=== PATIENT | female | born 1935 | race Caucasian/White ===

== ENCOUNTER 2018-05-04 19:35 | Inpatient (IN) | payer OTHER ==
[~2018-05-04] VITALS: Ht 157.5 cm; Wt 71.7 kg
[2018-05-04 19:46] VITALS: BP 131/71
[2018-05-04] MEDS ORDERED: AMBIEN 5 MG TABL5 M1 PO (20:04)
[2018-05-04] MEDS ORDERED: PROTONIX40 M1 PO (20:05)
[2018-05-04] MEDS ORDERED: AMLODIPINE BESYL5 M1 PO (20:05)
[2018-05-04] MEDS ORDERED: GABAPENTIN 100100 MG PO (20:06)
[2018-05-04] MEDS ORDERED: URSO TAB 250 M250 MG PO (20:06)
[2018-05-04] MEDS ORDERED: WELCHOL 625 MG625 MG PO (20:07)
[2018-05-04] MEDS ORDERED: XANAX 0.25 MG0.25 MG PO (20:08)
[2018-05-04 20:14] LABS: HEMATOCRIT 35.7 % (37.0-47.0); HEMOGLOBIN 11.3 gm/dL (12.0-15.0); MCH 26.6 pg (26.0-34.0); MCHC 31.7 g/dL (28.0-37.0); MCV 83.9 fL (80.0-100.0); MPV 8.6 fl. (7.2-11.1); NUCLEATED RBCS 0 /100WBC; PLATELET COUNT* 361 thou/uL (150-400); RBC 4.26 mil/uL (4.20-5.00); RDW-CV 15.2 % (10.5-14.5); WBC 21.3 thou/uL (4.0-11.0)
[2018-05-04 20:22] LABS: ANION GAP 11 mmol/L (7-16); BUN 34 mg/dL (7-18); CALCIUM 9.9 mg/dL (8.5-10.1); CHLORIDE 97 mmol/L (98-107); CO2 26 mmol/L (21-32); CREATININE 1.6 mg/dL (0.6-1.3); GLUCOSE 213 mg/dL (70-99); POTASSIUM 3.9 mmol/L (3.5-5.1); SODIUM 134 mmol/L (136-145)
[2018-05-04 20:31] LABS: APTT 25.4 Seconds (25.0-31.3)
[2018-05-04 20:33] LABS: ALBUMIN 3.4 g/dL (3.4-5.0); ALKALINE PHOSPHATASE 108 U/L (46-116); LIPASE 296 U/L (73-393); NT-PRO BRAIN NAT PEPTIDE 757 pg/mL (<300); SGOT 27 U/L (15-37); SGPT 37 U/L (30-65); TOTAL BILIRUBIN 0.3 mg/dL (<0.1-1.0); TOTAL PROTEIN 7.4 g/dL (6.4-8.2); TROPONIN-I LEVEL <0.06 ng/mL (<0.06)
[2018-05-04 20:37] LABS: URINE BILIRUBIN NEGATIVE (Negative); URINE BLOOD NEGATIVE (Negative); URINE CLARITY CLEAR; URINE COLOR YELLOW; URINE GLUCOSE-RANDOM NEGATIVE (Negative); URINE KETONES NEGATIVE (Negative); URINE LEUKOCYTES-REFLEX NEGATIVE (Negative); URINE NITRITE-REFLEX NEGATIVE (Negative); URINE PROTEIN NEGATIVE (Negative); URINE SPECIFIC GRAVITY 1.015 (1.005-1.030); URINE UROBILINOGEN 0.2 E.U./dl (0.2-1.0)
[2018-05-04 20:46] LABS: ABSOLUTE BASOPHILS 0.2 thou/uL (0.0-0.2); ABSOLUTE LYMPHOCYTES 1.5 thou/uL (0.8-5.3); ABSOLUTE MONOCYTES 0.4 thou/uL (0.0-1.2); ABSOLUTE NEUTROPHILS 19.2 thou/uL (1.6-8.1); ANISOCYTOSIS 1+; METAMYELOCYTES 1 %; PLATELET ESTIMATE ADEQUATE
[2018-05-04 21:25] LABS: BE -1.9 mmol/L (-2 to +3); HCO3 22.9 mmol/L (22.0-26.0); PCO2 39.2 mmHg (35.0-45.0); PO2 91.7 mmHg (75.0-100.0); pH 7.384 (7.340-7.450)
[2018-05-04 23:10] VITALS: BP 129/51
[2018-05-04 23:35] VITALS: BP 130/64
[2018-05-04] MEDS ORDERED: XANAX 0.5 MG0.5 MG PO (23:56)
[2018-05-05 03:54] VITALS: BP 144/48
[2018-05-05 08:00] VITALS: BP 92/71
[2018-05-05] MEDS ORDERED: COZAAR 25 MG TA25 M1 PO (09:30)
[2018-05-05] MEDS ORDERED: ATENOLOL 100MG100 MG PO (09:31)
[2018-05-05] MEDS ORDERED: CHLORTHALIDONE25 MG PO (09:31)
[2018-05-05 12:00] VITALS: BP 158/61
--- NOTE | 2018-05-05 12:13 | EKG ---
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 : 1935 Requested By: Marti Givens Order Number: [id number] MD: Rene Victor Measurements Intervals [place] Rate: 92 P: 74 MD: 156 QRS: 27 QRSD: 94 T: 86 QT: 337 QTc: 417 Interpretive Statements Sinus rhythm Anterior infarct, old Minimal ST depression, lateral leads Compared to ECG 03/04/2007 21:08:06 Myocardial infarct finding now present ST (T wave) deviation now present Electronically Signed On 05-05-2018 12:13:27 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
[2018-05-05 15:52] LABS: ABSOLUTE LYMPHOCYTES 1.9 thou/uL (0.8-5.3); ABSOLUTE MONOCYTES 1.5 thou/uL (0.0-1.2); ABSOLUTE NEUTROPHILS 13.3 thou/uL (1.6-8.1); BASOPHILS 0.1 %; HEMOGLOBIN 11.2 gm/dL (12.0-15.0); LYMPHOCYTES 11.2 %; MCH 26.7 pg (26.0-34.0); MCHC 31.9 g/dL (28.0-37.0); MCV 83.9 fL (80.0-100.0); MONOCYTES 8.9 %; MPV 8.5 fl. (7.2-11.1); NUCLEATED RBCS 0 /100WBC; PLATELET COUNT* 345 thou/uL (150-400); POLYS 79.8 %; RBC 4.17 mil/uL (4.20-5.00); RDW-CV 15.2 % (10.5-14.5); WBC 16.7 thou/uL (4.0-11.0)
[2018-05-05 16:00] VITALS: BP 137/49
[2018-05-05 16:13] LABS: ANION GAP 5 mmol/L (7-16); BUN 30 mg/dL (7-18); CALCIUM 9.3 mg/dL (8.5-10.1); CHLORIDE 103 mmol/L (98-107); CO2 29 mmol/L (21-32); CREATININE 1.3 mg/dL (0.6-1.3); GLUCOSE 100 mg/dL (70-99); POTASSIUM 4.2 mmol/L (3.5-5.1); SODIUM 137 mmol/L (136-145); TROPONIN-I LEVEL <0.06 ng/mL (<0.06)
[2018-05-05 17:04] VITALS: BP 137/49
--- NOTE | 2018-05-07 14:51 | CON ---
[address] [address] CONSULTATION Name: JARVIS HAWKINS Room: [address] IN M.R.#: [id number] Admission: 05/04/18 Attend Phys: Cheyenne Lopez Discharge: 05/05/18 Date of : 31 Report #: [id number] THIS REPORT FOR: //name// CC: Hank Sadler REQUESTING PHYSICIAN: Jhon Sadler DO PRIMARY CARE PHYSICIAN: Hank Guerra DO CHIEF COMPLAINT: Shortness of breath, chest discomfort. HISTORY OF PRESENT ILLNESS: The patient is an 82-year-old female who presented to the Emergency Department with a relatively acute onset of shortness of breath, elevated blood pressure and very mild, 1/10 chest discomfort, it was centrally located, but it radiated to her back. She took 3 nitro and aspirin and by the time she got to the Emergency Room most of her symptoms had resolved. Her presenting ECG was unremarkable and she was admitted for further observation and overnight her cardiac telemetry and troponins have all been normal and she is symptom-free this morning. She had recently had an epidural injection for degenerative joint disease and had noticed some weight and blood pressure had been trending upwards. She is very sensitive to increases in her current medical therapy because of side effects, though. She had been having some very mild increase in her lower extremities swelling. PAST MEDICAL HISTORY: Significant for coronary artery disease, she has had apparently 3 separate percutaneous coronary interventions. She is followed by Dr. Macias most recent one was in 2010, but she follows with him regularly. She has hypertension. She has mild chronic edema. HOME MEDICATIONS: Include amlodipine 5 mg daily; if she goes up to a higher dose she will get increasing lower extremities and pedal edema. She is on Protonix, zolpidem, gabapentin 100 mg p.o. t.i.d., and she takes chlorthalidone one tablet 3 days per week. ALLERGIES: SHE HAS ALLERGIES TO KEFLEX, CEPHALOSPORINS, LEVOFLOXACIN, PENICILLIN, QUINOLONES AND SULFAMETHOXAZOLE. SOCIAL HISTORY: She is a nonsmoker. She is recently . Her approximately a year ago. REVIEW OF SYSTEMS: GENERAL: [place] [address] CONSULTATION Name: JARVIS HAWKINS Room: [address]#: [id number] Admission: 05/04/18 Attend Phys: Cheyenne Lopez Discharge: 05/05/18 Date of : 31 Report #: [id number] PULMONARY: Positive shortness of breath. No orthopnea, no PND. CARDIOVASCULAR: Chest pain as noted above. No palpitations. NEUROLOGIC: No headaches, blurry vision, or slurred speech. No seizures. HEMATOLOGIC: No anemia or bleeding. RENAL: No history of kidney failure. SKIN: No rashes. She does have easy bruising. MUSCULOSKELETAL: No recent falls. Positive arthritis. PHYSICAL EXAMINATION: VITAL SIGNS: Blood pressure this morning is 92/71, pulse 75. Overnight, her blood pressure was 144/50. She is in a sinus rhythm, on telemetry GENERAL: A pleasant elderly female. She is alert, oriented, no apparent distress. HEENT: Eyes: EOMs intact. No facial asymmetry. NECK: Supple. No jugular venous distention. Upstrokes are normal. CARDIOVASCULAR: Regular. I could hear a faint apical murmur, no S3. LUNGS: Clear to auscultation bilaterally. ABDOMEN: Soft, nontender. EXTREMITIES: There is trace pretibial edema and pedal edema. SKIN: She has some numerous ecchymoses in the lower extremities. LABORATORY DATA: Hemoglobin is 11.3. White blood cell count was 21.3, but it is noted she was on steroids. Platelet count is 361,000. Sodium was 134, potassium was 3.9, BUN was 34, creatinine was 1.9, chloride was 97. AST, ALT 27 and 37. Troponin I was 0.06 x 2 sets. INR was 1.0. V/Q scan was low probability. Chest x-ray showed chronic lung changes. No pulmonary vascular abnormality or infiltrates. IMPRESSION AND PLAN: 1. Chest discomfort. This could be related to mild congestive heart failure. It is noted that her weight has been increasing. She recently had a steroid injection and elevated blood pressures as at home. Her BNP on presentation was 757, although her chest x-ray was fairly unremarkable. I instructed her to start taking an extra chlorthalidone per week, she currently is only taking approximately 3 per week. 2. Hypertension. This has stabilized inpatient. I would not make any further adjustments to her medications at this time. 3. Coronary artery disease. She follows regularly with Dr. Macias and I have instructed her to make an appointment with him as soon as she is discharged later today. She has ruled out for an acute myocardial infarction and her symptoms seem more to be possibly related to volume overload. [address] [address] CONSULTATION Name: JARVIS HAWKINS Room: [address] IN Prem#: [id number] Admission: 05/04/18 Attend Phys: Cheyenne Lopez Discharge: 05/05/18 Date of : 31 Report #: [id number] 4. Acute diastolic congestive heart failure as noted above. I would treat this conservatively with oral diuretics. <ELECTRONICALLY SIGNED> By: Rene Victor MD, FACC 05/07/18 1451 1033 1850Rene Victor MD, FACC /nt
[2018-05-08 02:12] LABS: GLYCOHEMOGLOBIN (HGB A1C) 5.8 % (4.8-5.6)
== END 2018-05-05 18:00 | disposition still patient (30) | DRG 682 ==
LOC: M.ERS 19:35 → M.TBA-ER 21:29 → M.2W 21:29
PROVIDERS: Family Medicine; Personal Emergency Response Attendant; ADMIT Internal Medicine
DX: N17.0 Acute kidney failure with tubular necrosis (principal); I50.31 Acute diastolic (congestive) heart failure; R65.11 Systemic inflammatory response syndrome (SIRS) of non-infectious origin with acute organ dysfunction; I13.0 Hypertensive heart and chronic kidney disease with heart failure and stage 1 through stage 4 chronic kidney disease, or unspecified chronic kidney disease; I25.118 Atherosclerotic heart disease of native coronary artery with other forms of angina pectoris; F32.9 Major depressive disorder, single episode, unspecified; F41.9 Anxiety disorder, unspecified; M19.90 Unspecified osteoarthritis, unspecified site; N18.3 Chronic kidney disease, stage 3 (moderate); D72.829 Elevated white blood cell count, unspecified; T38.0X5A Adverse effect of glucocorticoids and synthetic analogues, initial encounter; K21.9 Gastro-esophageal reflux disease without esophagitis; J44.9 Chronic obstructive pulmonary disease, unspecified; F43.20 Adjustment disorder, unspecified; I25.2 Old myocardial infarction; Z95.5 Presence of coronary angioplasty implant and graft; Z79.82 Long term (current) use of aspirin; Z79.899 Other long term (current) drug therapy; Y92.89 Other specified places as the place of occurrence of the external cause; Z88.1 Allergy status to other antibiotic agents; Z88.0 Allergy status to penicillin; Z88.2 Allergy status to sulfonamides; Z88.8 Allergy status to other drugs, medicaments and biological substances; Z82.49 Family history of ischemic heart disease and other diseases of the circulatory system

== ENCOUNTER 2020-12-04 18:42 | Inpatient (IN) | payer OTHER ==
[~2020-12-04] VITALS: Ht 160 cm; Wt 67.3 kg
[~2020-12-04 18:42] MED LIST: AMBIEN 5 MG TABL5 M1 PO; AMLODIPINE BESY10 MG PO; AMLODIPINE BESYL5 M1 PO; ATENOLOL 100MG100 MG PO; BENADRYL25 MG PO; BYSTOLIC10 MG PO; CHLORTHALIDONE25 MG PO; COZAAR 25 MG TA25 M1 PO; GABAPENTIN 100100 MG PO; LOSARTAN POTAS100 MG PO; NITROGLYCERIN0.4 MG SUBLING; PROTONIX40 M1 PO; PROTONIX40 M4 PO; ST. JOSEPH ASPI81 MG PO; URSO TAB 250 M250 MG PO; URSODIOL300 MG PO; WELCHOL 625 MG625 M1 PO; WELCHOL 625 MG625 MG PO; XANAX 0.25 MG0.25 MG PO; XANAX 0.5 MG0.5 MG PO; ZOLPIDEM TARTRA10 MG PO
[2020-12-04 18:45] VITALS: BP 202/81
[2020-12-04 19:46] LABS: ABSOLUTE BASOPHILS 0.1 thou/uL (0.0-0.2); ABSOLUTE EOSINOPHILS 0.3 thou/uL (0.0-0.7); ABSOLUTE LYMPHOCYTES 2.5 thou/uL (0.8-5.3); ABSOLUTE MONOCYTES 0.7 thou/uL (0.0-1.2); ABSOLUTE NEUTROPHILS 3.9 thou/uL (1.6-8.1); BASOPHILS 0.8 %; EOSINOPHILS 4.3 %; HEMATOCRIT 37.7 % (37.0-47.0); HEMOGLOBIN 12.7 gm/dL (12.0-15.0); LYMPHOCYTES 33.2 %; MCHC 33.7 g/dL (28.0-37.0); MCV 89.2 fL (80.0-100.0); MONOCYTES 9.4 %; MPV 7.9 fl. (7.2-11.1); NUCLEATED RBCS 0 /100WBC; PLATELET COUNT* 305 thou/uL (150-400); POLYS 52.3 %; RBC 4.22 mil/uL (4.20-5.00); RDW-CV 14.9 % (10.5-14.5); WBC 7.5 thou/uL (4.0-11.0)
[2020-12-04 19:58] LABS: CALCIUM 9.5 mg/dL (8.5-10.1); CREATININE 1.1 mg/dL (0.6-1.3); POTASSIUM 4.8 mmol/L (3.5-5.1)
[2020-12-04 20:09] LABS: ALBUMIN 3.4 g/dL (3.4-5.0); TOTAL BILIRUBIN 0.3 mg/dL (<0.1-1.0); TOTAL PROTEIN 6.8 g/dL (6.4-8.2)
[2020-12-04 20:28] LABS: BE 0.6 mmol/L (-2 to +3); PCO2 45.2 mmHg (35.0-45.0); pH 7.379 (7.340-7.450)
[2020-12-04 20:30] LABS: PO2 50.9 mmHg (75.0-100.0)
[2020-12-04] MEDS ORDERED: MICARDIS40 MG PO (22:41)
[2020-12-04] MEDS ORDERED: ATENOLOL 25 MG25 M1 PO (22:41)
[2020-12-04] MEDS ORDERED: FISH OIL 1,0001 EAC9 PO (22:45)
[2020-12-05] VITALS (7 sets, daily range): BP systolic 140–178; BP diastolic 58–113
--- NOTE | 2020-12-05 11:01 | EKG ---
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
[2020-12-06] VITALS: BP 126/53
[2020-12-06 04:00] VITALS: BP 120/46
[2020-12-06 04:59] LABS: ABSOLUTE BASOPHILS 0.1 thou/uL (0.0-0.2); ABSOLUTE EOSINOPHILS 0.3 thou/uL (0.0-0.7); ABSOLUTE LYMPHOCYTES 1.9 thou/uL (0.8-5.3); ABSOLUTE MONOCYTES 0.7 thou/uL (0.0-1.2); ABSOLUTE NEUTROPHILS 3.2 thou/uL (1.6-8.1); EOSINOPHILS 4.4 %; HEMATOCRIT 37.4 % (37.0-47.0); HEMOGLOBIN 12.6 gm/dL (12.0-15.0); LYMPHOCYTES 31.2 %; MCH 29.6 pg (26.0-34.0); MCHC 33.6 g/dL (28.0-37.0); MCV 88.2 fL (80.0-100.0); MPV 7.1 fl. (7.2-11.1); NUCLEATED RBCS 0 /100WBC; PLATELET COUNT* 284 thou/uL (150-400); POLYS 52.4 %; RBC 4.24 mil/uL (4.20-5.00); RDW-CV 14.5 % (10.5-14.5); WBC 6.1 thou/uL (4.0-11.0)
[2020-12-06 05:11] LABS: CALCIUM 9.4 mg/dL (8.5-10.1); CREATININE 1.3 mg/dL (0.6-1.3); POTASSIUM 4.4 mmol/L (3.5-5.1)
[2020-12-06 07:45] VITALS: BP 148/54
[2020-12-06 12:00] VITALS: BP 134/45
[2020-12-06 16:00] VITALS: BP 142/63
[2020-12-06 20:00] VITALS: BP 133/57
[2020-12-07] VITALS: BP 119/36
[2020-12-07 03:45] VITALS: BP 115/46
[2020-12-07 09:15] LABS: ABSOLUTE BASOPHILS 0.1 thou/uL (0.0-0.2); ABSOLUTE EOSINOPHILS 0.4 thou/uL (0.0-0.7); ABSOLUTE LYMPHOCYTES 1.7 thou/uL (0.8-5.3); ABSOLUTE MONOCYTES 0.9 thou/uL (0.0-1.2); ABSOLUTE NEUTROPHILS 3.8 thou/uL (1.6-8.1); BASOPHILS 1.2 %; EOSINOPHILS 5.7 %; HEMATOCRIT 36.1 % (37.0-47.0); HEMOGLOBIN 12.2 gm/dL (12.0-15.0); LYMPHOCYTES 25.1 %; MCH 29.5 pg (26.0-34.0); MCHC 33.7 g/dL (28.0-37.0); MCV 87.4 fL (80.0-100.0); MONOCYTES 12.5 %; MPV 7.8 fl. (7.2-11.1); NUCLEATED RBCS 0 /100WBC; PLATELET COUNT* 312 thou/uL (150-400); POLYS 55.5 %; RBC 4.13 mil/uL (4.20-5.00); RDW-CV 14.6 % (10.5-14.5); WBC 6.9 thou/uL (4.0-11.0)
[2020-12-07 09:40] LABS: ALBUMIN 2.7 g/dL (3.4-5.0); CALCIUM 9.2 mg/dL (8.5-10.1); CREATININE 1.4 mg/dL (0.6-1.3); POTASSIUM 4.4 mmol/L (3.5-5.1); TOTAL BILIRUBIN 0.4 mg/dL (<0.1-1.0)
[2020-12-07 12:00] VITALS: BP 120/46
[2020-12-07 13:22] VITALS: BP 124/43
[2020-12-07 15:37] VITALS: BP 124/43
[2020-12-07 16:00] VITALS: BP 140/46
--- NOTE | 2020-12-08 16:07 | 2DMMODE ---
[place] [address] 2 D/M-MODE ECHOCARDIOGRAM Name: SHRUTHIJARVIS J Room: [address] IN .Edel.#: [id number] Admission: 12/04/20 Attend Phys: Jhon Sadler Discharge: 12/07/20 Date of : 31 Date of Service: 12/07/20 1613 Report #: [id number] THIS REPORT FOR: cc: Hank Guerra Mohammad K. DO Blick, David R. MD [facility] ~ APPROVED REPORT Study performed: 12/07/2020 13:45:32 EXAM: Comprehensive 2D, Doppler, and color-flow Echocardiogram Patient Location: In-Patient Room #: [facility] Status: routine BSA: 1.66 HR: 60 bpm BP: 115/46 mmHg Rhythm: NSR Other Information Study Quality: Good Indications Congestive Heart Failure 2D Dimensions IVSd: 11.81 (7-11mm) LVOT Diam: 19.30 (18-24mm) LVDd: 37.48 mm PWd: 8.35 (7-11mm) Ascending Ao: 28.74 (22-36mm) LVDs: 21.01 (25-40mm) Aortic Root: 29.35 mm Volumes Left Atrial Volume (Systole) LA ESV Index: 27.30 mL/m2 Aortic Valve AoV Peak Hollis.: 1.57 m/s AO Peak Gr.: 9.87 mmHg LVOT Max P.68 mmHg AO Mean Gr.: 5.98 mmHg LVOT Mean P.40 mmHg LVOT Max V: 1.47 m/s AO V2 VTI: 35.21 cm LVOT Mean V: 0.96 m/s FOUZIA (VTI): 2.84 cm2 LVOT V1 VTI: 34.21 [place] [address] 2 D/M-MODE ECHOCARDIOGRAM Name: JARVIS HAWKINS Room: [address] IN .R.#: [id number] Admission: 12/04/20 Attend Phys: Jhon Sadler Discharge: 12/07/20 Date of : 31 Date of Service: 12/07/20 1613 Report #: [id number] Mitral Valve MV Mean Gr.: 2.69 mmHg E/A Ratio: 0.63 MV Decel. Time: 413.35 ms MV E Max Hollis.: 0.92 m/s MV PHT: 119.87 ms MVA (PHT): 1.84 cm2 TDI E/Lateral E': 18.40 E/Medial E': 18.40 Medial E' Hollis.: 0.05 m/s Lateral E' Hollis.: 0.05 m/s Pulmonary Valve PV Peak Hollis.: 0.90 m/s PV Peak Gr.: 3.23 mmHg Tricuspid Valve RAP Estimate: 5.00 mmHg TR Peak Gr.: 38.85 mmHg RVSP: 43.00 mmHg PA Pressure: 43.00 mmHg Left Ventricle The left ventricle is normal size. There is normal LV segmental wall motion. There is normal left ventricular wall thickness. Left ventricular systolic function is normal. The left ventricular ejection fraction is within the normal range. LVEF is 60-65%. Grade I - abnormal relaxation pattern. Right Ventricle The right ventricle is normal size. The right ventricular systolic function is normal. Atria The left atrium size is normal. The right atrium size is normal. Aortic Valve Mild aortic valve sclerosis. No aortic regurgitation is present. There is no aortic valvular stenosis. Mitral Valve Moderate mitral annular calcification. The mitral valve is normal in structure. There is no mitral valve regurgitation noted. Moderate mitral stenosis. Tricuspid Valve The tricuspid valve is normal in structure[place] [address] 2 D/M-MODE ECHOCARDIOGRAM Name: JARVIS HAWKINS Room: [address] IN M.R.#: [id number] Admission: 12/04/20 Attend Phys: Jhon Sadler Discharge: 12/07/20 Date of : 31 Date of Service: 12/07/20 1613 Report #: [id number] regurgitation. estimated pa pressure 45 mm Hg Pulmonic Valve The pulmonary valve is normal in structure. There is no pulmonic valvular regurgitation. Great Vessels The aortic root is normal in size. IVC is normal in size and collapses >50% with inspiration. Pericardium There is no pericardial effusion. <Conclusion> LVEF is 60-65%. Mild aortic valve sclerosis. Trace tricuspid regurgitation. estimated pa pressure 45 mm Hg <ELECTRONICALLY SIGNED> By: Bandar Owens MD, FACC 12/07/20 1613 161 161 Bandar Owens MD, FACC /INF
== END 2020-12-07 17:40 | disposition home health service (06) | DRG 291 ==
LOC: M.ERS 18:42 → M.TBA-ER 20:36 → M.2W 20:36 → M.TBA-ER 12-05 19:17 → M.2W 12-05 19:40
PROVIDERS: Internal Medicine; Personal Emergency Response Attendant; ADMIT Internal Medicine; ATTEND Internal Medicine
DX: I11.0 Hypertensive heart disease with heart failure (principal); J96.01 Acute respiratory failure with hypoxia; E87.1 Hypo-osmolality and hyponatremia; K21.9 Gastro-esophageal reflux disease without esophagitis; I50.33 Acute on chronic diastolic (congestive) heart failure; J44.9 Chronic obstructive pulmonary disease, unspecified; E87.70 Fluid overload, unspecified; E78.00 Pure hypercholesterolemia, unspecified; I25.10 Atherosclerotic heart disease of native coronary artery without angina pectoris; I16.0 Hypertensive urgency; R09.02 Hypoxemia; E04.1 Nontoxic single thyroid nodule; Z20.822 Contact with and (suspected) exposure to COVID-19; Z96.1 Presence of intraocular lens; Z95.5 Presence of coronary angioplasty implant and graft; I25.2 Old myocardial infarction; Z98.42 Cataract extraction status, left eye; Z98.41 Cataract extraction status, right eye; Z98.891 History of uterine scar from previous surgery; Z90.49 Acquired absence of other specified parts of digestive tract; Z85.528 Personal history of other malignant neoplasm of kidney; Z88.0 Allergy status to penicillin; Z88.1 Allergy status to other antibiotic agents; Z79.82 Long term (current) use of aspirin; Z79.899 Other long term (current) drug therapy; Z87.891 Personal history of nicotine dependence